=== PATIENT | male | born 1945 | race Caucasian/White ===

== ENCOUNTER 2017-01-15 08:41 | Day surgery (SDC) ==
[2013-12-04 22:34] VITALS: BMI 27.1
[2017-01-15] MEDS ORDERED: VERSED ONE (10:49)
[2017-01-15] MEDS ORDERED: DIPRIVAN 20 ML VIAL IVP ONE (10:49)
[2017-01-15 11:54] VITALS: BP 124/76; TEMP 98.6
--- NOTE | 2017-01-16 12:57 | OP ---
INDICATIONS FOR PROCEDURE: 71-year-old gentleman presents for colonoscopy exam. He has a history of adenomatous polyps with the last colonoscopy a little over 3 years ago. MEDICATIONS: SEE ANESTHESIA NOTES. PROCEDURE: COLONOSCOPY, SNARE POLYPECTOMY. REPORT: The risks, benefits, alternatives and limitations were discussed in detail with the patient. Informed consent was obtained. After adequate sedation was achieved, digital rectal exam revealed good tone, no masses. The colonoscope was introduced into the rectum and advanced under direct visual guidance to the cecum. The cecum was identified by the appendiceal orifice and IC valve. In the cecum there are three diminutive polyps , about 3 to 4 mm in size. I destroyed all three of these using a hot snare. I then slowly withdrew the scope in a circumferential manner examining the mucosa quite carefully. I looked on the proximal and distal side of folds and flexures as best as possible. In the distal transverse colon there is a slightly raised 6 or 7 mm polyp that I removed by snare technique. I noted diverticulosis scattered throughout the entire colon with the majority of these being in the sigmoid colon. There are a few diverticula in the right colon. On retroflex view of the anal canal there is a small internal hemorrhoid. No other abnormalities were noted. The prep was adequate. The withdrawal time was 10 minutes and 40 seconds. The patient tolerated the procedure well with stable vital signs and pulse oximetry throughout. IMPRESSION: 1. FOUR (4) POLYPS REMOVED OR DESTROYED ABOVE. 2. RAY DIVERTICULOSIS. 3. SMALL INTERNAL HEMORRHOIDS. RECOMMENDATIONS: 1. High fiber diet. 2. Office visit as needed. 3. Await polyp pathology. If everything is benign as expected, recommend repeat surveillance examination again in three years, sooner if there are signs or symptoms to indicate otherwise. CC: DR. ANA [address]
== END 2017-01-15 12:18 | disposition home or self-care (01) ==
LOC: SURG 08:41
PROVIDERS: ATTEND Internal Medicine Gastroenterology
DX: Z09 Encounter for follow-up examination after completed treatment for conditions other than malignant neoplasm (principal); Z86.010 Personal history of colon polyps; D12.3 Benign neoplasm of transverse colon; K63.5 Polyp of colon; K57.30 Diverticulosis of large intestine without perforation or abscess without bleeding; K64.8 Other hemorrhoids